=== PATIENT | male | born 2000 | race Caucasian/White ===

== ENCOUNTER 2023-07-31 08:45 | Day surgery (SDC) | payer BC ==
[~2023-07-31] VITALS: Ht 162.6 cm; Wt 63.5 kg
[2023-07-31] MEDS ORDERED: ACETAMINOPHEN I.V. 1000 MG 100 ML IV ONE (13:20)
[2023-07-31] MEDS ORDERED: HYDROmorphone 1 MG/ML INJ. CARTRIDGE IVP PRN ×2 (13:30)
[2023-07-31] MEDS ORDERED: MEPERIDINE HCL/PF 25 MG/ML DISP.SYRIN IVP PRN (13:30)
[2023-07-31] MEDS ORDERED: METOCLOPRAMIDE HCL 10 MG/2 ML VIAL IVP PRN (13:30)
[2023-07-31] MEDS ORDERED: LABETALOL 100 MG/ 20ML VIAL IVP PRN (13:30)
[2023-07-31] MEDS ORDERED: LR 1,000 ML IV SCH (13:30)
[2023-07-31] MEDS ORDERED: MIDAZOLAM HCL 2 MG/2 ML VIAL (VERSED) IVP PRN (13:30)
[2023-07-31] MEDS ORDERED: hydrALAZINE HCL 20 MG/ML VIAL IVP PRN (13:30)
[2023-07-31 13:32] VITALS: O2SAT 100
[2023-07-31] MEDS ORDERED: LIDOCAINE 2%, 20 ML MDV ONE (14:21)
[2023-07-31] MEDS ORDERED: DESFLURANE 15 MIN GAS INH ONE (14:21)
[2023-07-31] MEDS ORDERED: MIDAZOLAM HCL 5 MG/ML VIAL (VERSED) IV ONE (14:21)
[2023-07-31] MEDS ORDERED: LIDOCAINE/EPI 1% 1:100000 20 ML VIAL ONE (14:21)
[2023-07-31] MEDS ORDERED: LR 1,000 ML IV.SOLN IV ONE (14:21)
[2023-07-31] MEDS ORDERED: SUGAMMADEX SODIUM 200 MG/2 ML VIAL IV ONE (14:21)
[2023-07-31] MEDS ORDERED: OXYMETAZOLINE HCL 0.05% NASAL SPRAY NS ONE (14:21)
[2023-07-31] MEDS ORDERED: MUPIROCIN 2% TOPICAL OINTMENT 22 GM ONE (14:21)
[2023-07-31] MEDS ORDERED: PROPOFOL 200MG/ 20ML VIAL (DIPRIVAN) IV ONE (14:21)
[2023-07-31] MEDS ORDERED: ROCURONIUM BROMIDE 10 MG/ML (ZEMURON) ONE (14:21)
[2023-07-31] MEDS ORDERED: NS IRRIG SOLN 1000 ML IR ONE (14:21)
[2023-07-31] MEDS ORDERED: DEXAMETHASONE SOD PHOSPHATE 4 MG/ML VIAL ONE (14:21)
[2023-07-31] MEDS ORDERED: ONDANSETRON HCL 4 MG/2 ML VIAL ONE (14:21)
[2023-07-31] MEDS ORDERED: WATER FOR IRRIGATION,STERILE 1,000 ML IRRIG.SOLN IR ONE (14:21)
[2023-07-31] MEDS ORDERED: fentaNYL CITRATE/PF 100 MCG/2 ML AMP ONE (14:21)
[2023-07-31] MEDS ORDERED: NS 1000 ML IV.SOLN IV ONE (14:21)
[2023-07-31 17:43] VITALS: BP_SYST 116; PULSE 69; RESP 16
== END 2023-07-31 18:10 | disposition home or self-care (01) ==
LOC: SDS 08:45 → SMU 08:46 → SDS 18:10
PROVIDERS: ATTEND Otolaryngology
DX: D38.5 Neoplasm of uncertain behavior of other respiratory organs (principal); J34.2 Deviated nasal septum; J34.89 Other specified disorders of nose and nasal sinuses; K21.9 Gastro-esophageal reflux disease without esophagitis; F17.210 Nicotine dependence, cigarettes, uncomplicated; Z90.49 Acquired absence of other specified parts of digestive tract; Z88.8 Allergy status to other drugs, medicaments and biological substances; Z79.899 Other long term (current) drug therapy; Z83.3 Family history of diabetes mellitus
CPT/HCPCS: 30520; 30140; 31240; 88305; 88311; J3490; J1100; J2250; J2405; J2704; J3010; J7120; J7030; J0131; J2001